=== PATIENT | female | born 1980 | race Two or more races ===

== ENCOUNTER 2022-12-17 10:32 | Emergency (ER) | payer OTHER ==
[~2022-12-17] VITALS: Ht 170.2 cm; Wt 65.3 kg
[~2022-12-17 10:32] MED LIST: PRENATAL TABLE1 EAC1 PO; RHOGAM300 MCG/SY IM
== END 2022-12-17 17:38 | disposition home or self-care (01) ==
LOC: ER 10:32
DX: R31.9 Hematuria, unspecified (principal)